=== PATIENT | male | born 1985 | race Caucasian/White ===

== ENCOUNTER 2017-06-03 09:07 | Outpatient (CLI) | payer OTHER ==
--- NOTE | 2017-06-03 15:13 | MRI ---
MRI LUMBAR SPINE NONCONTRAST: Date: 06/03/17 HISTORY: Low back pain. Sacroiliac dysfunction. FINDINGS: Radiographs are not available for direct correlation. Therefore, the lowest lumbar-type vertebra camila l be designated as L5, with the remainder numbered accordingly. The conus medullaris has a normal ap pearance. Vertebral body height and alignment are maintained. Mild discogenic end plate changes are present within the bone marrow. Very mild posterior disc bulge is present at the T11-12 level. T12-L1, L1-2, and L2-3: Mild osteophytosis is present. The central canal and neural foramina are patent. L3-4: Mild disc space narrowing is present with desiccation of the intervertebral disc. Mild posterior dis c bulge, along with facet joint hypertrophy and ligamentous thickening result in mild stenosis of th e central canal and right neural foramen. L4-5: Mild osteophytosis is present. The central canal and neural foramina are patent. L5-S1: Posterior disc bulge is present, slightly greater to the right of midline, with a focus of increased T2 signal in the posterior disc annulus having the appearance of an annular fissure. The thecal sac is patent. Degenerative changes result in mild stenosis of the right neural foramen. Coronal images of the sacrum were obtained, showing no abnormal signal around the sacroiliac joints. IMPRESSION: 1. Mild degenerative changes of the lower lumbar spine, including disc bulges as detailed above. No focal nerve root compression is apparent. POS: VALDEZ
== END 2017-06-03 09:08 | disposition home or self-care (01) ==
LOC: SCSMRI 09:07
PROVIDERS: ATTEND Family Medicine
DX: M53.3 Sacrococcygeal disorders, not elsewhere classified (principal); M51.26 Other intervertebral disc displacement, lumbar region; M47.816 Spondylosis without myelopathy or radiculopathy, lumbar region
CPT/HCPCS: 72148

== ENCOUNTER 2018-08-21 13:18 | Outpatient (CLI) | payer OTHER ==
--- NOTE | 2018-08-21 14:37 | MRI ---
MRI RIGHT ANKLE WITHOUT CONTRAST: 08/21/18 PROVIDED CLINICAL HISTORY: Right ankle pain status post injury. FINDINGS: The anterior extensor, medial flexor, peroneal and Achilles tendons demonstrates an intact MR appeara nce. The medial and lateral ankle ligaments appear intact. No focal tibiotalar articular cartilage defect is apparent. No regional joint effusion. Interosseous ganglion formation is seen within the calcaneus subjacent to the angle of G[place]. Regional marrow a nd muscular signal appear otherwise unremarkable. The plantar aponeurosis appears normal. The courses of the regional major neurovascular structures ap pear unremarkable. There is preservation of the normal fat signal intensity within the tarsal sinus. A type II navicular is demonstrated without evidence for edema about the synchondrosis. IMPRESSION: No evidence for an acute process. POS: OFF
== END 2018-08-21 13:19 | disposition home or self-care (01) ==
LOC: SCSMRI 13:18
PROVIDERS: ATTEND Family Medicine
DX: S97.81XD Crushing injury of right foot, subsequent encounter (principal)